=== PATIENT | female | born 1980 | race Caucasian/White ===

== ENCOUNTER 2018-04-19 19:13 | Emergency (ER) | payer OTHER ==
--- NOTE | 2018-04-19 21:11 | XRAY Report ---
Procedure Date: 04/19/2018 Accession Number: [id number] / [id number] Procedure: XR - Foot 3 View RT CPT Code: FULL RESULT: EXAM: RIGHT FOOT RADIOGRAPHY EXAM DATE: 04/19/2018 08:50 PM. CLINICAL HISTORY: Foot injury. COMPARISON: None. TECHNIQUE: 3 views. FINDINGS: Bones: No fracture or focal bony lesion. Joints: No evidence of dislocation. Soft Tissues: No unexpected soft tissue findings. IMPRESSION: No evidence of fracture or dislocation. RADIA
--- NOTE | 2018-04-19 21:40 | ED Physician Documentation ---
PD HPI LOWER EXT INJURY - Stated complaint Stated Complaint: R FOOT INJURY - Chief complaint Chief Complaint: Ext Problem - History obtained from History obtained from: Patient - History of Present Illness PD HPI LOW EXT INJURY LOCATION: Right, Ankle, Foot (inversion) Type of injury: Twist Timing - onset: How many days ago (few) Timing - details: Abrupt onset, Still present (she is concerned that still swollen and hurts. Concerned about fracture and also treatment.) Worsened by: Moving Associated symptoms: Swelling, Discolored (some bruising). No: Weakness, Numbness Similar symptoms before: Has not had sx before Recently seen: Not recently seen Review of Systems Skin: denies: Abrasion (s), Laceration (s) Musculoskeletal: reports: Extremity swelling Neurologic: denies: Focal weakness, Numbness PD PAST MEDICAL HISTORY - Past Medical History Cardiovascular: None Respiratory: None Musculoskeletal: None - Present Medications Home Medications: Ambulatory Orders Medication Instructions Recorded Confirmed Diclofenac Sodium 04/19/18 - Allergies Allergies/Adverse Reactions: Allergies Allergy/AdvReac Type Severity Reaction Status Date / Time Unable to Assess Allergy Verified 04/19/18 19:33 PD ED PE NORMAL - Vitals Vital signs reviewed: Yes - General General: Alert and oriented X 3, No acute distress, Well developed/nourished - Derm Derm: Normal color, Warm and dry, No rash - Extremities Extremities: Other (right foot with swelling and tenderness dorsolateral proximal foot. No malleolar tenderness per se. Axchilles firma nd intact. ) - Neuro Neuro: No motor deficit, No sensory deficit Results - Vitals Vitals: Oxygen O2 Source Room air - Rads (name of study) right foot Radiology: Prelim report reviewed (no fractures) PD MEDICAL DECISION MAKING - ED course Complexity details: reviewed results, considered differential, d/w patient - Sepsis Event Vital Signs: Oxygen O2 Source Room air Departure - Departure Disposition: 01 Home, Self Care Clinical Impression: Foot sprain Qualifiers: Encounter type: initial encounter Laterality: right Qualified Code(s): S93.601A - Unspecified sprain of right foot, initial encounter Condition: Stable Record reviewed to determine appropriate education?: Yes Instructions: ED Sprain Foot Comments: Use the postop shoe or a firm soled shoe when up and around for the next several days to week. This should reduce the amount of movement and flex through the foot to allow better healing. Continue your typical medicines including the diclofenac. Add Tylenol 500 mg to 650 mg 3-4 times a day as needed for pains. Recheck if not improved over the next several days to week. Your x-ray appeared normal without any signs of fractures. Discharge Date/Time: 04/19/18 22:14
[2018-04-19 21:58] VITALS: BP 126/74
== END 2018-04-19 22:14 | disposition home or self-care (01) ==
LOC: ED 19:13
DX: S93.601A Unspecified sprain of right foot, initial encounter (principal); X50.0XXA Overexertion from strenuous movement or load, initial encounter
CPT/HCPCS: 99282; 99283

== ENCOUNTER 2019-01-09 11:15 | Emergency (ER) | payer OTHER ==
[2019-01-09 14:09] LABS: CLARITY,URINE CLEAR (CLEAR)
[2019-01-09 14:10] LABS: BILIRUBIN,URINE COLOR INTERFERENCE (NEGATIVE); HCG UR QUAL NEGATIVE
[2019-01-09 14:18] LABS: BACTERIA,URINE Many /HPF (None Seen); RBC,URINE 0-5 /HPF (0-5); SQUAMOUS EPITHELIAL CELL,UR MANY Squamous (<= Few)
[2019-01-09] MEDS ORDERED: cefTRIAXone 1 GM VIAL IM STA (15:13)
[2019-01-09] MEDS ORDERED: KETOROLAC 60 MG/2 ML VIAL IM STA (15:13)
[2019-01-09] MEDS ORDERED: LIDOCAINE 1% 2 ML VIAL MC ONE (15:13)
--- NOTE | 2019-01-09 15:20 | ED Physician Documentation ---
PD HPI FEMALE - Stated complaint Stated Complaint: BACK PX/NAUSEA - Chief complaint Chief Complaint: General - History obtained from History obtained from: Patient - History of Present Illness Timing - onset: How many weeks ago (3) Timing - duration: Weeks (3) Timing - details: Gradual onset, Still present Associated symptoms: Back pain, Dysuria, Urinary frequency Contributing factors: No: Similar symptoms before: Has not had sx before Recently seen: Not recently seen - Additional information Additional information: 38-year-old female who is not had prior urinary tract infection has developed ri ght flank pain she also is having urinary urgency frequency and dysuria for the past 2 weeks. She was asked to come to the emergency department by her work when they noted that she was a bit to in color today. She states that she was planning on waiting several more days to go and see her regular doctor and that she has had nausea and chills as well as flank pain that has been distracting. Review of Systems Constitutional: reports: Chills, Fatigue. denies: Fever Eyes: denies: Decreased vision Ears: denies: Ear pain Nose: denies: Rhinorrhea / runny nose, Congestion Throat: denies: Sore throat GI: reports: Nausea. denies: Abdominal Pain, Vomiting, Constipation, Diarrhea : reports: Dysuria, Frequency Skin: denies: Rash Musculoskeletal: reports: Back pain. denies: Neck pain, Extremity pain Neurologic: denies: Generalized weakness, Focal weakness, Numbness PD PAST MEDICAL HISTORY - Past Medical History Cardiovascular: None Respiratory: None Musculoskeletal: None - Present Medications Home Medications: Ambulatory Orders Medication Instructions Recorded Confirmed Diclofenac Sodium 04/19/18 Hydrocodone/Acetaminophen 1 - 2 each PO Q6H PRN #14 tablet 01/09/19 [Hydrocodon-Acetaminophen 5-325] Ondansetron Odt [Zofran] 4 mg TL Q6H PRN #10 tablet 01/09/19 Sulfamethoxazole/Trimethoprim 1 each PO BID #14 tablet 01/09/19 [Sulfamethoxazole-Tmp Ds Tablet] - Allergies Allergies/Adverse Reactions: Allergies Allergy/AdvReac Type Severity Reaction Status Date / Time No Known Drug Allergies Allergy Verified 01/09/19 12:21 PD ED PE NORMAL - Vitals Vital signs reviewed: Yes (normal) - General General: Alert and oriented X 3, No acute distress, Well developed/nourished - HEENT HEENT: Atraumatic, PERRL, EOMI - Neck Neck: Supple, no meningeal sign, No bony TTP - Cardiac Cardiac: RRR, No murmur - Respiratory Respiratory: No respiratory distress, Clear bilaterally - Abdomen Abdomen: Soft, Non tender - Back Back: No spinal TTP, Other (right CVA tenderness is not entirely reproducible. ) - Derm Derm: Normal color, Warm and dry, No rash - Extremities Extremities: No deformity, No edema - Neuro Neuro: Alert and oriented X 3, media relations intern 2-12 intact, No motor deficit, No sensory deficit, Normal speech Eye Opening: Spontaneous Motor: Obeys Commands Verbal: Oriented GCS Score: 15 - Psych Psych: Normal mood, Normal affect Results - Vitals Vitals: Vital Signs - 24 hr 01/09/19 12:21 Temperature 37.1 C Heart Rate 60 Respiratory 14 Rate Blood Pressure 115/80 O2 Saturation 100 Oxygen O2 Source Room air - Labs Labs: Laboratory Tests 01/09/19 14:00 Urine Color DK. ORANGE Urine Clarity CLEAR Urine pH Ur Specific [place] Urine Protein Urine Glucose (UA) Urine Ketones Urine Occult Blood Urine Nitrite Urine Bilirubin COLOR INTERFERENCE Urine Urobilinogen Ur Leukocyte Esterase Urine RBC 0-5 Urine WBC 0-3 Ur Squamous Epith Cells MANY Squamous H Urine Bacteria Many H Ur Microscopic Review INDICATED Urine Culture Comments NOT INDICATED Urine HCG, Qual NEGATIVE Procedures - Bedside sono Bedside sono by EMP: With use of bedside ultrasound the right kidney is imaged there is evidence of hydronephrosis that is mild and there is sonographic tenderness. There is no surrounding fluid. PD MEDICAL DECISION MAKING - ED course Complexity details: reviewed results, re-evaluated patient, considered differential, d/w patient ED course: 38-year-old female with urinary symptoms and back pain has a negative CT scan for stone and she is administered Rocephin and Toradol to treat pyelonephritis. Departure - Departure Disposition: 01 Home, Self Care Clinical Impression: Pyelonephritis Condition: Stable Instructions: ED Kidney Infec Female Follow-Up: JENNY DELVALLE [Primary Care Provider] - Prescriptions: Hydrocodone/Acetaminophen [Hydrocodon-Acetaminophen 5-325] 1 - 2 each PO Q6H PRN #14 tablet PRN Reason: pain Ondansetron Odt [Zofran] 4 mg TL Q6H PRN #10 tablet PRN Reason: Nausea / Vomiting Sulfamethoxazole/Trimethoprim [Sulfamethoxazole-Tmp Ds Tablet] 1 each PO BID #14 tablet Forms: Activity restrictions
--- NOTE | 2019-01-09 15:35 | CT Report ---
Reason: right flank pain Procedure Date: 01/09/2019 Accession Number: [id number] / [id number] Procedure: CT - Abdomen/Pelvis WO CPT Code: FULL RESULT: EXAM: CT ABDOMEN AND PELVIS (CT KUB) EXAM DATE: 01/09/2019 03:00 PM. CLINICAL HISTORY: Right flank pain. COMPARISONS: None. TECHNIQUE: Routine axial helical CT imaging was performed through the abdomen and pelvis without IV contrast. Reconstructions: Coronal and sagittal. In accordance with CT protocol optimization, one or more of the following dose reduction techniques were utilized for this exam: automated exposure control, adjustment of mA and/or KV based on patient size, or use of iterative reconstructive technique. FINDINGS: Lung Bases: Unremarkable. Right Kidney/Ureter: No stones, hydronephrosis, or hydroureter. No perinephric fat stranding. Left Kidney/Ureter: No stones, hydronephrosis, or hydroureter. No perinephric fat stranding. Other Solid Organs: Noncontrast images of the solid organs are grossly unremarkable. Gallbladder/Bile Ducts: Unremarkable. Peritoneal Cavity: No free fluid, free air or nadia adenopathy. Bowel is grossly unremarkable. Pelvic Organs: Uterus is anteverted. There is an IUD located centrally within the uterus. Urinary bladder is empty. Vasculature: Unremarkable. Other: The appendix is partially visualized and the visible portion appears unremarkable. IMPRESSION: 1. No urolithiasis or hydronephrosis. 2. No CT abnormality to explain symptoms. RADIA
[2019-01-09 19:36] VITALS: BP 114/78
== END 2019-01-09 16:13 | disposition home or self-care (01) ==
LOC: ED 11:15
DX: N12 Tubulo-interstitial nephritis, not specified as acute or chronic (principal)
CPT/HCPCS: 74176; 81001; 81003; 81025; 87086; 96372; 99283; 99284

== ENCOUNTER 2019-01-22 12:11 | Emergency (ER) | payer OTHER ==
[2019-01-22 12:28] VITALS: BP 133/61
[2019-01-22] MEDS ORDERED: DEXAMETHASONE 10 MG/ML VIAL PO STA (13:11)
[2019-01-22] MEDS ORDERED: CHERRY SYRUP 10 ML UDC PO ONE (13:11)
--- NOTE | 2019-01-22 13:31 | ED Physician Documentation ---
PD HPI BACK PAIN - Stated complaint Stated Complaint: BACK PX - Chief complaint Chief Complaint: General - History obtained from History obtained from: Patient - History of Present Illness Timing - onset: How many weeks ago (5) Timing - duration: Weeks (5) Timing - details: Abrupt onset, Still present, Waxing and waning Location: Mid, Right Quality: Pain, Spasm, Sharp, Similar to prior episodes Associated symptoms: No: Fever, Weakness, Numbness, Incontinent of urine, Unable to urinate, Hematuria, Incontinent of stool Improves with: Rest, Position, Meds Worsened by: Movement, Lifting, Twisting, Palpation Contributing factors: Other (on feet all day at work the pain is worse.) Similar symptoms before: Work up / diagnostics (has had U/A, CT, blood work and trial of abx for pyelo) Recently seen: Clinic, Emergency Dept - Additional information Additional information: 38-year-old female previously well has developed flank pain on the right side she is been into see her doctor and was originally treated for urinary tract infection and her symptoms did not improve or go away. She came to the emergency department was evaluated here she had a urine specimen with Azo and at that had a lot of bacteria and it and she was treated empirically for pyelonephritis after obtaining a CT of the abdomen and pelvis which did not demonstrate any evidence of intra-abdominal pathology. She has been back in to see her doctor and she has had blood work and urinalysis repeated and these were normal as well. Review of Systems Constitutional: denies: Fever, Chills, Myalgias Eyes: denies: Decreased vision Ears: denies: Ear pain Nose: denies: Rhinorrhea / runny nose, Congestion Throat: denies: Sore throat Cardiac: denies: Chest pain / pressure, Palpitations Respiratory: denies: Dyspnea, Cough GI: reports: Nausea, Vomiting : denies: Dysuria, Frequency Skin: denies: Rash Musculoskeletal: reports: Back pain. denies: Neck pain, Extremity pain Neurologic: denies: Generalized weakness, Focal weakness, Numbness PD PAST MEDICAL HISTORY - Past Medical History Cardiovascular: None Respiratory: None Musculoskeletal: None - Past Surgical History Past Surgical History: No - Present Medications Home Medications: Ambulatory Orders Medication Instructions Recorded Confirmed Ondansetron Odt [Zofran] 4 mg TL Q6H PRN #10 tablet 01/09/19 01/22/19 Ciprofloxacin HCl [Cipro] 1 tab ORAL BID 01/22/19 01/22/19 Cyclobenzaprine [Flexeril] 10 mg PO TID PRN #20 tablet 01/22/19 Oxycodone HCl/Acetaminophen 1 - 2 each PO Q6H PRN #14 tablet 01/22/19 [Percocet 5-325 mg Tablet] Promethazine [Phenergan] 25 mg PO Q6H PRN #10 tab 01/22/19 - Allergies Allergies/Adverse Reactions: Allergies Allergy/AdvReac Type Severity Reaction Status Date / Time No Known Drug Allergies Allergy Verified 01/22/19 12:28 - Social History Does the pt smoke?: No Smoking Status: Never smoker Does the pt drink ETOH?: No Does the pt have substance abuse?: No - Immunizations Immunizations are current?: Yes PD ED PE NORMAL - Vitals Vital signs reviewed: Yes (normal ) - General General: Alert and oriented X 3, Well developed/nourished, Other (pale female with flat affect ) - HEENT HEENT: Atraumatic, PERRL, EOMI - Neck Neck: Supple, no meningeal sign, No bony TTP - Cardiac Cardiac: RRR, No murmur - Respiratory Respiratory: No respiratory distress, Clear bilaterally - Abdomen Abdomen: Soft, Non tender - Back Back: No spinal TTP, Other (There is point tenderness to the right flank specifically and today not to the left. The pain is medial and specific. There is no bruising to the area. ) - Derm Derm: Normal color, Warm and dry, No rash - Extremities Extremities: No deformity, No edema - Neuro Neuro: Alert and oriented X 3, aids counselor 2-12 intact, No motor deficit, No sensory deficit, Normal speech Eye Opening: Spontaneous Motor: Obeys Commands Verbal: Oriented GCS Score: 15 - Psych Psych: Normal mood, Normal affect Results - Vitals Vitals: Vital Signs - 24 hr 01/22/19 01/22/19 12:22 13:00 Temperature 36.6 C Heart Rate 67 88 Respiratory 16 18 Rate Blood Pressure 133/61 H O2 Saturation 99 97 Oxygen O2 Source Room air - Labs Labs: Laboratory Tests 01/22/19 01/22/19 13:45 13:45 Urine Color YELLOW Urine Clarity CLEAR Urine pH 5.5 Ur Specific [place] >=1.030 H >=1.030 H Urine Protein NEGATIVE Urine Glucose (UA) NEGATIVE Urine Ketones NEGATIVE Urine Occult Blood TRACE-LYSE Urine Nitrite NEGATIVE Urine Bilirubin NEGATIVE Urine Urobilinogen 0.2 (NORMAL) Ur Leukocyte Esterase NEGATIVE Ur Microscopic Review NOT INDICATED Urine Culture Comments NOT INDICATED Urine HCG, Qual NEGATIVE PD MEDICAL DECISION MAKING - ED course Complexity details: reviewed results, re-evaluated patient, considered differential, d/w patient ED course: 38-year-old female with back pain that has been treated as Peylo, did not improv e and she has had diagnostic imaging procedures which were unremarkable as well as blood work and urinalysis. I suspect her pain is musculoskeletal in nature and she has had persistence of this pain now for 5 weeks. I discussed her history in more detail she has been sleeping with her heating blanket on as that she only relief she is getting. I have asked her to stop using the heated blanket and to use ice and stretch we will place her on pain medication and muscle relaxant and off work. She is administered a dose of dexamethasone here in the emergency department. Departure - Departure Disposition: 01 Home, Self Care Clinical Impression: Flank pain Condition: Stable Instructions: ED Flank Pain Uncertain Cause Follow-Up: JENNY DELVALLE [Primary Care Provider] - Prescriptions: Cyclobenzaprine [Flexeril] 10 mg PO TID PRN #20 tablet PRN Reason: Spasms Oxycodone HCl/Acetaminophen [Percocet 5-325 mg Tablet] 1 - 2 each PO Q6H PRN #14 tablet PRN Reason: pain Promethazine [Phenergan] 25 mg PO Q6H PRN #10 tab PRN Reason: Nausea / Vomiting Forms: Activity restrictions
[2019-01-22] MEDS ORDERED: ONDANSETRON ODT 4 MG TABLET TL STA (13:40)
[2019-01-22 13:52] LABS: BILIRUBIN,URINE NEGATIVE (NEGATIVE); GLUCOSE, URINE (UA) NEGATIVE (NEGATIVE); KETONES,URINE (UA) NEGATIVE (NEGATIVE); LEUKOCYTE ESTERASE, URINE NEGATIVE (NEGATIVE); NITRITE,URINE NEGATIVE (NEGATIVE); OCCULT BLOOD,URINE TRACE-LYSE (NEGATIVE); PH,URINE 5.5 PH (5.0-7.5); PROTEIN,URINE NEGATIVE (NEGATIVE); UROBILINOGEN,URINE 0.2 (NORMAL) E.U./dL (NORMAL)
[2019-01-22 13:54] LABS: CLARITY,URINE CLEAR (CLEAR); HCG UR QUAL NEGATIVE
== END 2019-01-22 14:39 | disposition home or self-care (01) ==
LOC: ED 12:11
DX: R10.31 Right lower quadrant pain (principal); M54.9 Dorsalgia, unspecified
CPT/HCPCS: 81003; 81025; 99283; A9270; Q0162; 81001; 87086

== ENCOUNTER 2020-08-16 13:40 | Outpatient (CLI) | payer OTHER ==
[2020-08-16] MEDS ORDERED: GADOBUTROL 7.5 MMOL/7.5 ML VIAL ONE (14:29)
[2020-08-16] MEDS ORDERED: GADOBUTROL 7.5 MMOL/7.5 ML VIAL IVP ONE (15:02)
--- NOTE | 2020-08-16 15:10 | MRI Report ---
PROCEDURE: Brain W/WO INDICATIONS: HEADACHE CONTRAST: IV CONTRAST: Gadavist ml: 7.5 TECHNIQUE: Noncontrast axial T1 spin echo, axial T2 fast spin echo, sagittal and axial FLAIR, coronal T2 fast sp in echo, axial gradient echo, axial diffusion and ADC through the brain. After the administration of contrast, axial and coronal T1 spin echo with fat saturation through the brain. COMPARISON: None. FINDINGS: Image quality: Excellent. CSF spaces: Basal cisterns are patent. No extra-axial fluid collections. Ventricles are normal in size and shape. Brain: No midline shift. No intracranial bleeds or masses. No abnormal intracranial enhancement. There is cerebral volume loss for age. There is periventricular white matter chronic small vessel is chemic change. The brainstem appears normal. Diffusion-weighted images demonstrate no acute ischemi c insults. No chronic ischemic insults. Normal intravascular flow voids are present. Skull and face: Calvarial marrow is normal in signal. Orbits appear normal. Sinuses: Sinuses and mastoids appear clear. IMPRESSION: 1. No acute process. No recent infarct. 2. No explanation for headache. Reviewed by: Hanh Duval MD on 08/16/2020 2:08 PM [place] Approved by: Hanh Duval MD on 08/16/2020 2:08 PM [facility] Station ID: [id number]
== END 2020-08-16 13:41 | disposition home or self-care (01) ==
LOC: DI 13:40
PROVIDERS: ATTEND Student in an Organized Health Care Education/Training Program
DX: G44.89 Other headache syndrome (principal)
CPT/HCPCS: 70553; A9585

== ENCOUNTER 2021-02-15 18:20 | Emergency (ER) | payer OTHER ==
[2021-02-15 18:37] VITALS: BP 105/61
--- NOTE | 2021-02-15 19:56 | ED Physician Documentation ---
History of Present Illness - Stated complaint Stated Complaint: LT KNEE PX - Chief complaint Chief Complaint: Ext Problem - History obtained from History obtained from: Patient - History of Present Illness Timing: How many days ago (2) Pain level max: 0 Pain level now: 0 - Additonal information Additional information: Patient is a 40-year-old female with a longstanding history of left knee issues. She states that over the past several days she has felt like there is a rubber band in her knee and it is pulling/sliding. She states that she had a fall ACL tear several years ago and that at that time the orthopedist stated that the scar tissue in the knee had formed essentially a new ACL so no he was performed. She is concerned that she may have another ACL injury. Worse with walking, better with rest. Review of Systems Constitutional: denies: Fever : denies: Now [place] PD PAST MEDICAL HISTORY - Past Medical History Past Medical History: Yes Cardiovascular: None Respiratory: None Musculoskeletal: None Other Past Medical History: Vertebral fx & pain - Past Surgical History Past Surgical History: No - Present Medications Home Medications: Ambulatory Orders Medication Instructions Recorded Confirmed Cyclobenzaprine [Flexeril] 10 mg 02/15/21 HYDROcodone/ACET 10/325 [[place] 10 1 tab 02/15/21 mg/325 mg] Meloxicam [Mobic] 7.5 mg PO BID PRN #30 tablet 02/15/21 Methocarbamol [Robaxin-750] 500 mg 02/15/21 - Allergies Allergies/Adverse Reactions: Allergies Allergy/AdvReac Type Severity Reaction Status Date / Time cephalexin Allergy Unknown Verified 02/15/21 18:38 - Social History Does the pt smoke?: No Smoking Status: Never smoker Does the pt drink ETOH?: No Does the pt have substance abuse?: No - Immunizations Immunizations are current?: Yes - POLST Patient has POLST: No PD ED PE NORMAL - Vitals Vital signs reviewed: Yes - General General: Alert and oriented X 3, No acute distress - HEENT HEENT: Moist mucous membranes - Derm Derm: Warm and dry - Extremities Extremities: Other (Mild swelling to the left knee. ACL is very lax. LCL is lax as well. No significant joint effusion. No bony tenderness. Neurovascularly intact. MCL, PCL intact) - Neuro Neuro: Alert and oriented X 3 - Psych Psych: Normal mood, Normal affect Results - Vitals Vitals: Vital Signs - 24 hr 02/15/21 18:28 Temperature 36.5 C Heart Rate 72 Respiratory 16 Rate Blood Pressure 105/61 O2 Saturation 97 Oxygen O2 Source Room air - Rads (name of study) L knee xray Radiology: Prelim report reviewed, EMP read contemporaneously, See rad report (No evidence acute bony abnormality of the left knee. ) PD MEDICAL DECISION MAKING - ED course Complexity details: reviewed results, re-evaluated patient, considered differential, d/w patient ED course: 40-year-old female presents to the emergency department with a chronic left knee injury that is worsened over the past few days. Placed in a articulating knee brace. She uses a cane in the right hand to help her ambulate. She has pain medication at home. We will have her follow-up with orthopedics for further care. Patient counseled regarding signs and symptoms for which I believe and urgent re-evaluation would be necessary. Patient with good understanding of and agreement to plan and is comfortable going home at this time This document was made in part using voice recognition software. While efforts are made to proofread this document, sound alike and grammatical errors may occur. Departure - Departure Disposition: 01 Home, Self Care Clinical Impression: Knee internal derangement Qualifiers: Laterality: left Qualified Code(s): M23.92 - Unspecified internal derangement of left knee Condition: Good Instructions: ED Knee Injury Cruciate Ligament [facility] [Provider [facility]] - Within 1 week [facility] [Provider Group] Prescriptions: Meloxicam [Mobic] 7.5 mg PO BID PRN #30 tablet PRN Reason: Pain Comments: Wear the brace at home for comfort. You should have an MRI performed. This can be ordered by your doctor or the orthopedist. Return if you worsen. Discharge Date/Time: 02/15/21 20:10
--- NOTE | 2021-02-15 20:05 | XRAY Report ---
PROCEDURE: Knee 4 View LT INDICATIONS: pain, sliding sensation TECHNIQUE: 4 views of the left knee(s) were acquired. COMPARISON: None. FINDINGS: Bones: No fractures or dislocations. No suspicious bony lesions. Soft tissues: No joint effusion. No suspicious soft tissue calcifications. IMPRESSION: No evidence acute bony abnormality of the left knee. Reviewed by: Ronald Shaw MD on 02/15/2021 8:04 PM PDT Approved by: Ronald Shaw MD on 02/15/2021 8:04 PM PDT Station ID: [id number]
== END 2021-02-15 20:10 | disposition home or self-care (01) ==
LOC: ED 18:20
DX: M23.92 Unspecified internal derangement of left knee (principal)
CPT/HCPCS: 99283; 99284

== ENCOUNTER 2021-04-03 11:12 | Emergency (ER) | payer OTHER ==
--- NOTE | 2021-04-03 12:21 | XRAY Report ---
PROCEDURE: Foot 3 View RT INDICATIONS: Trauma TECHNIQUE: 3 views of the foot were acquired. COMPARISON: X-ray foot 04/19/2018 FINDINGS: Bones: No fractures or dislocations. No suspicious bony lesions. Soft tissues: No tibiotalar joint effusion. Achilles tendon appears normal. IMPRESSION: No visualized acute fracture or dislocation. However, occult injury cannot be excluded. Recommend junie rt interval imaging follow-up in 7-10 days as clinically indicated for additional evaluation. Reviewed by: Sumi Mckeon MD on 04/03/2021 12:19 PM PDT Approved by: Sumi Mckeon MD on 04/03/2021 12:19 PM PDT Station ID: [id number]
--- NOTE | 2021-04-03 12:42 | ED Physician Documentation ---
PD HPI LOWER EXT INJURY - Stated complaint Stated Complaint: RT LITTLE TOE INJURY - Chief complaint Chief Complaint: Trauma Ext - History obtained from History obtained from: Patient - History of Present Illness PD HPI LOW EXT INJURY LOCATION: Right, Foot Type of injury: Blunt / blow Where injury occurred: Home Timing - onset: Yesterday Timing - details: Abrupt onset, Still present Improved by: Rest, Immobilization Worsened by: Moving, Palpating Associated symptoms: Swelling, Discolored. No: Weakness, Numbness Contributing factors: No: Anticoagulated Similar symptoms before: Has not had sx before Recently seen: Not recently seen - Additional information Additional information: 40-year-old female accidentally kicked her couch yesterday and has pain to the right fifth digit. She has some swelling and tenderness associated with this and she is having some pain when she walks. She has not otherwise been ill. Review of Systems Constitutional: denies: Fever Eyes: denies: Decreased vision Ears: denies: Ear pain Nose: denies: Congestion Respiratory: denies: Cough GI: denies: Vomiting PD PAST MEDICAL HISTORY - Past Medical History Past Medical History: No Cardiovascular: None Respiratory: None Musculoskeletal: None - Past Surgical History Past Surgical History: No - Present Medications Home Medications: Ambulatory Orders Medication Instructions Recorded Confirmed HYDROcodone/ACET 10/325 [[place] 10 1 tab PO PRN PRN 02/15/21 mg/325 mg] methocarbamoL [Robaxin-750] 500 mg PO PRN PRN 02/15/21 Gabapentin [Neurontin] 300 mg PO PRN PRN 04/03/21 04/03/21 Meloxicam [Mobic] 7.5 mg PO PRN PRN 04/03/21 04/03/21 - Allergies Allergies/Adverse Reactions: Allergies Allergy/AdvReac Type Severity Reaction Status Date / Time cephalexin Allergy Unknown Verified 04/03/21 11:29 - Social History Does the pt smoke?: No Smoking Status: Never smoker Does the pt drink ETOH?: No Does the pt have substance abuse?: No - Immunizations Immunizations are current?: Yes - POLST Patient has POLST: No PD ED PE NORMAL - Vitals Vital signs reviewed: Yes (Normal) - General General: Alert and oriented X 3, No acute distress, Well developed/nourished - HEENT HEENT: Atraumatic, PERRL, EOMI - Respiratory Respiratory: No respiratory distress - Derm Derm: Normal color, Warm and dry, No rash - Extremities Extremities: No deformity, Other (No specific tenderness to the distal fifth metatarsal or the proximal fifth. There is swelling and point tenderness to the fifth digit on the right foot with some ecchymosis over the dorsal surface of the proximal phalange. 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, No motor deficit, No sensory deficit Eye Opening: Spontaneous Motor: Obeys Commands Verbal: Oriented GCS Score: 15 - Psych Psych: Normal mood, Normal affect Results - Vitals Vitals: Vital Signs - 24 hr 04/03/21 11:26 Temperature 36.0 C L Heart Rate 83 Respiratory 16 Rate Blood Pressure 120/70 O2 Saturation 97 Oxygen O2 Source Room air - Rads (name of study) foot Radiology: Prelim report reviewed (Impression: No visualized acute fracture or dislocation.), EMP read indepedently, See rad report PD MEDICAL DECISION MAKING - ED course Complexity details: considered differential, d/w patient ED course: 40-year-old female who kicked her couch yesterday has bruising and tenderness to walk on her foot on the right side she does not have any evidence of fracture on x-ray examination. A metatarsal bar pad is formed out of cast padding and the patient is walking in a cast shoe this is placed in the cast shoe allows the patient to ambulate without the pain of her fifth toe. Departure - Departure Disposition: 01 Home, Self Care Clinical Impression: Contusion of toe, right Qualifiers: Encounter type: initial encounter Toe: lesser toe Damage to nail status: without damage Qualified Code(s): S90.121A - Contusion of right lesser toe(s) without damage to nail, initial encounter Condition: Stable Instructions: ED Sprain Toe Follow-Up: QI GARCIA MD [Primary Care Provider] -
[2021-04-03 12:57] VITALS: BP 110/63
== END 2021-04-03 13:00 | disposition home or self-care (01) ==
LOC: ED 11:12
DX: S90.121A Contusion of right lesser toe(s) without damage to nail, initial encounter (principal); W22.03XA Walked into furniture, initial encounter; Y93.89 Activity, other specified; Y92.009 Unspecified place in unspecified non-institutional (private) residence as the place of occurrence of the external cause
CPT/HCPCS: 99282; 99283

== ENCOUNTER 2021-04-25 18:30 | Outpatient (CLI) | payer OTHER ==
--- NOTE | 2021-04-25 16:05 | XRAY Report ---
PROCEDURE: Knee 4 View LT INDICATIONS: L KNEE PX TECHNIQUE: 4 views of the left knee(s) were acquired. COMPARISON: 02/15/2021 FINDINGS: Severe anterior soft tissue swelling. No joint effusion. No acute fracture identified. Minimal narrow ing of the medial and lateral joint spaces. IMPRESSION: Anterior soft tissue swelling. Mild degenerative joint disease. If the patient's pain or other symptoms persist, consider further ev aluation with MRI. Reviewed by: Ross Obrien MD on 04/25/2021 4:04 PM PDT Approved by: Ross Obrien MD on 04/25/2021 4:04 PM PDT Station ID: [id number]
== END 2021-04-25 23:59 | disposition home or self-care (01) ==
LOC: DI.N 18:30
PROVIDERS: ATTEND Physician Assistant
DX: M17.12 Unilateral primary osteoarthritis, left knee (principal)

== ENCOUNTER 2022-02-09 15:32 | Emergency (ER) | payer OTHER ==
[2022-02-09 15:55] LABS: BASOPHILS % (AUTO) 0.4 %; EOSINOPHILS # (AUTO) 0.3 10^3/uL (0.0-0.7); EOSINOPHILS % (AUTO) 4.2 %; HCT - HEMATOCRIT 41.8 % (37.0-47.0); HGB - HEMOGLOBIN 13.7 g/dL (12.0-16.0); LYMPHOCYTES # (AUTO) 1.9 10^3/uL (1.5-3.5); LYMPHOCYTES % (AUTO) 24.1 %; MEAN CORPUSCULAR HEMOGLOBIN 28.8 pg (27.0-31.0); MEAN CORPUSCULAR HGB CONC 32.8 g/dL (32.0-36.0); MEAN PLATELET VOLUME 9.9 fL (7.9-10.8); MONOCYTES # (AUTO) 0.4 10^3/uL (0.0-1.0); MONOCYTES % (AUTO) 5.3 %; NEUTROPHILS # (AUTO) 5.2 10^3/uL (1.5-6.6); NEUTROPHILS % (AUTO) 65.6 %; PLT - PLATELET COUNT 212 10^3/uL (130-450); RED BLOOD COUNT 4.75 10^6/uL (4.20-5.40); RED CELL DISTRIBUTION WIDTH 13.4 % (12.0-15.0); WHITE BLOOD COUNT 7.9 x10^3/uL (4.8-10.8)
[2022-02-09] MEDS ORDERED: SODIUM CHLORIDE 0.9% 1,000 ML IV STA (15:59)
[2022-02-09] MEDS ORDERED: fentaNYL 100 MCG/2 ML VIAL IVP STA (15:59)
--- NOTE | 2022-02-09 16:04 | ED Physician Documentation ---
History of Present Illness - Stated complaint Stated Complaint: ABD PX - Chief complaint Chief Complaint: Abd Pain - Additonal information Additional information: 41-year-old female presents emergency department for evaluation of acute left l ower quadrant abdominal pain. States that she flew to [place] for her partner's graduation last week. While in route she developed sudden pain in the lower part of her abdomen. When she had arrived and got to the hotel the pain went away. However upon returning via airplane today she again got this pain which has not subsided. She describes it as more severe since then the first incidence. She has not taken anything for pain no fevers or vomiting. No dysuria urgency or frequency. Denies diarrhea. States she had a bowel movement today. Patient states the only thing that has helped the pain is to stay in a hunched over position. Pt endorses frequent belching and flatuence with this pain today. She did have bilateral tubo oophorectomies in June 2021. That is her only surgical history. Review of Systems Constitutional: denies: Fever, Chills Nose: reports: Reviewed and negative Throat: reports: Reviewed and negative Cardiac: reports: Reviewed and negative Respiratory: reports: Reviewed and negative GI: reports: Abdominal Pain. denies: Nausea, Vomiting, Constipation, Diarrhea : reports: Reviewed and negative Skin: reports: Reviewed and negative Musculoskeletal: reports: Reviewed and negative PD PAST MEDICAL HISTORY - Past Medical History Cardiovascular: None Respiratory: None Musculoskeletal: None - Past Surgical History Past Surgical History: No - Present Medications Home Medications: Ambulatory Orders Medication Instructions Recorded Confirmed HYDROcodone/ACET 10/325 [[place] 10 1 tab PO PRN PRN 02/15/21 02/09/22 mg/325 mg] methocarbamoL [Robaxin-750] 500 mg PO PRN PRN 02/15/21 02/09/22 Gabapentin [Neurontin] 300 mg PO PRN PRN 04/03/21 02/09/22 Meloxicam [Mobic] 7.5 mg PO PRN PRN 04/03/21 02/09/22 - Allergies Allergies/Adverse Reactions: Allergies Allergy/AdvReac Type Severity Reaction Status Date / Time cephalexin Allergy Unknown Verified 02/09/22 15:49 - Social History Does the pt smoke?: No Smoking Status: Never smoker Does the pt drink ETOH?: No Does the pt have substance abuse?: No - Immunizations Immunizations are current?: Yes - POLST Patient has POLST: No PD ED PE NORMAL - General General: Alert and oriented X 3, No acute distress, Well developed/nourished - HEENT HEENT: Atraumatic, Ears normal, Moist mucous membranes - Neck Neck: Supple, no meningeal sign, No adenopathy - Cardiac Cardiac: RRR, No murmur, No gallop - Respiratory Respiratory: No respiratory distress, Clear bilaterally - Abdomen Abdomen: Normal bowel sounds, Soft. No: Non tender (Tenderness left lower quadrant without guarding or rebound. No flank or CVA tenderness was elicited. Healing laparoscopic incision sites are noted. No swelling redness or erythema) - Back Back: No CVA TTP, No spinal TTP - Derm Derm: Normal color, Warm and dry, No rash - Extremities Extremities: No deformity, No tenderness to palpate, Normal ROM s pain - Neuro Neuro: Alert and oriented X 3, ob/gyn doctor 2-12 intact Eye Opening: Spontaneous Motor: Obeys Commands Verbal: Oriented GCS Score: 15 Results - Vitals Vitals: Vital Signs - 24 hr 02/09/22 02/09/22 15:50 18:09 Temperature 37.0 C Heart Rate 70 76 Respiratory 18 18 Rate Blood Pressure 152/78 H 126/68 O2 Saturation 100 100 Oxygen O2 Source Room air - Labs Labs: Laboratory Tests 02/09/22 02/09/22 02/09/22 15:50 15:50 16:34 WBC 7.9 RBC 4.75 Hgb 13.7 Hct 41.8 MCV 88.0 MCH 28.8 MCHC 32.8 RDW 13.4 Plt Count 212 MPV 9.9 Neut # (Auto) 5.2 Lymph # (Auto) 1.9 Allen # (Auto) 0.4 Eos # (Auto) 0.3 Baso # (Auto) 0.0 Absolute Nucleated RBC 0.00 Nucleated RBC % 0.0 Sodium 136 Potassium 4.1 Chloride 100 L Carbon Dioxide 28 Anion Gap 8.0 BUN 19 Creatinine 0.8 Estimated GFR (MDRD) 80 L Glucose 111 H Calcium 9.2 Total Bilirubin 0.3 AST 16 ALT 15 Alkaline Phosphatase 71 Total Protein 7.9 Albumin 4.1 Globulin 3.8 Albumin/Globulin Ratio 1.1 Lipase 30 Urine Color YELLOW Urine Clarity CLEAR Urine pH 7.5 Ur Specific Harvest 1.015 Urine Protein NEGATIVE Urine Glucose (UA) NEGATIVE Urine Ketones NEGATIVE Urine Occult Blood TRACE-INTA Urine Nitrite NEGATIVE Urine Bilirubin NEGATIVE Urine Urobilinogen 0.2 (NORMAL) Ur Leukocyte Esterase NEGATIVE Ur Microscopic Review NOT INDICATED Urine Culture Comments NOT INDICATED Urine HCG, Qual 02/09/22 16:34 WBC RBC Hgb Hct MCV MCH MCHC RDW Plt Count MPV Neut # (Auto) Lymph # (Auto) Allen # (Auto) Eos # (Auto) Baso # (Auto) Absolute Nucleated RBC Nucleated RBC % Sodium Potassium Chloride Carbon Dioxide Anion Gap BUN Creatinine Estimated GFR (MDRD) Glucose Calcium Total Bilirubin AST ALT Alkaline Phosphatase Total Protein Albumin Globulin Albumin/Globulin Ratio Lipase Urine Color Urine Clarity Urine pH Ur Specific Harvest Urine Protein Urine Glucose (UA) Urine Ketones Urine Occult Blood Urine Nitrite Urine Bilirubin Urine Urobilinogen Ur Leukocyte Esterase Ur Microscopic Review Urine Culture Comments Urine HCG, Qual NEGATIVE - Rads (name of study) CTAP Radiology: Final report received (No bowel obstruction. No significant free fluid. Crenulated right ovarian cyst measuring 1.7 cm.) PD MEDICAL DECISION MAKING - ED course Complexity details: reviewed old records, reviewed results, re-evaluated patient, considered differential, d/w patient ED course: 41-year-old female presents emergency department for evaluation of left lower abdominal pain. This has been a recurrent pain since traveling by air to [place] for her partner's graduation. Patient reports however today that when she got on the airplane she was pain-free shortly after takeoff she began to have this pain nonradiating. No fevers or vomiting. She was concerned she could have a bowel perforation. Since the pain began she has been having a lot of flatulence as well as burping. On exam she was focally tender without guarding or rebound on the left lower abdominal region. Her screening labs were unremarkable without leukocytosis or worrisome electrolyte derangement. A CT of the abdomen did not reveal any worrisome findings. She does have a right ovarian cyst. I discussed the findings with the patient and her spouse. I discussed that I thought the focal pain may be related to air travel and air in the bowels after drinking a soda that may cause expansion and decompression of gas. Patient is encouraged to take ibuprofen Tylenol and/or Gas-X. She will return to the ER for fevers, worsening pain uncontrolled vomiting black or bloody stools. Departure - Departure Disposition: 01 Home, Self Care Clinical Impression: LLQ abdominal pain Condition: Stable Record reviewed to determine appropriate education?: Yes Instructions: ED Abdominal Pain Cause Unkn Fem Ch Comments: You are seen today in the ER because you have had a recurrent pain in the left lower portion of your abdomen. This seems to have followed air travel. Your screening labs and urine today are essentially unremarkable. The CT of your abdomen shows that you likely have a small right ovarian cyst but this is not the source of your pain. Your intestines and bowel are normal without any findings to suggest a perforation. I suspect that the largest cause of your pain may be due to swallowed air or gas that has expanded after airplane travel. In general I recommend that you take Tylenol or ibuprofen for discomfort. You may find some relief of symptoms by using Gas-X or Beano [id number] at home. If at any point you find that your symptoms are suddenly severe, you have fevers, uncontrolled vomiting black or bloody stools then please return to the ER for second evaluation.
[2022-02-09 16:09] LABS: ALBUMIN 4.1 g/dL (3.2-5.5); ALBUMIN/GLOBULIN RATIO 1.1 (1.0-2.2); BILIRUBIN,TOTAL 0.3 mg/dL (0.2-1.0); CALCIUM 9.2 mg/dL (8.5-10.3); CREATININE 0.8 mg/dL (0.4-1.0); POTASSIUM 4.1 mmol/L (3.5-5.0); TOTAL PROTEIN 7.9 g/dL (6.7-8.2)
[2022-02-09 16:40] LABS: BILIRUBIN,URINE NEGATIVE (NEGATIVE); GLUCOSE, URINE (UA) NEGATIVE (NEGATIVE); KETONES,URINE (UA) NEGATIVE (NEGATIVE); LEUKOCYTE ESTERASE, URINE NEGATIVE (NEGATIVE); NITRITE,URINE NEGATIVE (NEGATIVE); OCCULT BLOOD,URINE TRACE-INTA (NEGATIVE); PH,URINE 7.5 PH (5.0-7.5); PROTEIN,URINE NEGATIVE (NEGATIVE); UROBILINOGEN,URINE 0.2 (NORMAL) E.U./dL (NORMAL)
[2022-02-09 16:42] LABS: CLARITY,URINE CLEAR (CLEAR)
[2022-02-09 17:15] LABS: HCG UR QUAL NEGATIVE
[2022-02-09] MEDS ORDERED: IOVERSOL 320 50 ML VIAL ONE (17:58)
[2022-02-09] MEDS ORDERED: IOVERSOL 320 50 ML VIAL IV ONE (18:05)
[2022-02-09 18:10] VITALS: BP 126/68
--- NOTE | 2022-02-09 18:45 | CT Report ---
PROCEDURE: Abdomen/Pelvis W INDICATIONS: LLQ abd pain CONTRAST: IV CONTRAST: Optiray 320 ml: 100 PO CONTRAST: *NO PO CONTRAST TECHNIQUE: After the administration of intravenous contrast, 5 mm thick sections acquired from the diaphragms to the symphysis. 5 mm thick coronal and sagittal reformats were acquired. For radiation dose reducti on, the following was used: automated exposure control, adjustment of mA and/or kV according to aubrey ent size. COMPARISON: CT abdomen pelvis 01/09/2019. FINDINGS: Image quality: Excellent. ABDOMEN: Lung bases: Lung bases are clear. Heart size is normal. Solid organs: Liver and spleen are normal in size and enhancement. Gallbladder is unremarkable. Bi liary system is non dilated. Pancreas enhances normally. No adrenal nodules. Kidneys demonstrate n ormal size and enhancement, without hydronephrosis. Peritoneum and bowel: Bowel loops demonstrate normal wall thickness and caliber. No free fluid or a ir. Nodes and vessels: No retroperitoneal or mesenteric adenopathy by size criteria. Aorta and inferior vena cava are normal in size. Miscellaneous: Tiny fat-containing umbilical hernia. PELVIS: Genitourinary: Bladder wall thickness is normal. Left ovary is within normal limits. Crenulated rig ht ovarian cyst measuring 1.7 cm. Miscellaneous: No inguinal hernias or adenopathy. Bones: No suspicious bony lesions. No vertebral body compression fractures. IMPRESSION: 1. No bowel obstruction. No significant free fluid. 2. Crenulated right ovarian cyst measuring 1.7 cm. This could represent a corpus luteum or hemorrhagi c cyst. Reviewed by: Jose Gil MD on 02/09/2022 6:43 PM PDT Approved by: Jose Gil MD on 02/09/2022 6:43 PM PDT Station ID: [id number]
== END 2022-02-09 19:15 | disposition home or self-care (01) ==
LOC: ED 15:32
DX: R10.32 Left lower quadrant pain (principal)
CPT/HCPCS: 36415; 80053; 81001; 81003; 81025; 83690; 85025; 87086; 96374; 99282